=== PATIENT | male | born 1970 | race Caucasian/White ===

== ENCOUNTER 2025-06-07 07:21 | Inpatient (IN) | payer OTHER ==
[2025-06-07] VITALS (8 sets, daily range): BP systolic 170–191; BP diastolic 90–113; PULSE 72–84; RESP 12–18; TEMP 97.7–98.8; O2SAT 98–100
[~2025-06-07] VITALS: Ht 175.3 cm; Wt 116.1 kg
[2025-06-07] MEDS ORDERED: SODIUM CHLORIDE FLUSH 10 ML SYR IV PRN (07:45)
[2025-06-07 08:35] LABS: BASOPHILS % 0.4 % (0.0-1.0); EOSINOPHILS % 7.3 % (0.0-6.0); LYMPHOCYTES % 22.3 % (18.0-39.1); MONOCYTES % 7.3 % (4.4-11.3); NEUTROPHILS % 62.4 % (38.7-80.0); RED CELL DISTRIBUTION WIDTH 14.0 % (11.7-14.4)
[2025-06-07 09:17] LABS: EST GLOMERULAR FILTRATION RATE 51.0 ML/MIN (>=60)
[2025-06-07] MEDS ORDERED: IOPAMIDOL 370 MG/ML 100 ML INFUS..BTL INJ ONE (09:27)
[2025-06-07] MEDS ORDERED: SODIUM CHLORIDE FLUSH 10 ML SYR INJ PRN (11:15)
[2025-06-07] MEDS ORDERED: ONDANSETRON HCL INJ 2MG/ML 2ML 2 MG/ML VIAL IV PRN (11:15)
[2025-06-07] MEDS ORDERED: DIPHENHYDRAMINE HCL 25 MG CAP PO PRN (15:15)
[2025-06-07] MEDS: NIFEDIPINE CR 30 MG TAB PO SCH (15:15)
[2025-06-07] MEDS ORDERED: DOCUSATE SODIUM 100 MG CAP PO PRN (15:15)
[2025-06-07] MEDS ORDERED: SIMETHICONE 80 MG CHEW PO PRN (15:15)
[2025-06-07] MEDS ORDERED: POTASSIUM CHLORIDE 20 MEQ TAB CR PO PRN (15:15)
[2025-06-07] MEDS ORDERED: DEXTROSE 50% SYRINGE 50 ML IV PRN (15:15)
[2025-06-07] MEDS ORDERED: ALBUTEROL/IPRATROPIUM 3 ML NEB NEB PRN (15:15)
[2025-06-07] MEDS ORDERED: HYDROCODONE/APAP 5MG-325MG TAB PO PRN (15:15)
[2025-06-07] MEDS ORDERED: BENZONATATE 100 MG CAP PO PRN (15:15)
[2025-06-07] MEDS ORDERED: ACETAMINOPHEN 325 MG TAB PO PRN (15:15)
[2025-06-07] MEDS ORDERED: LIDOCAINE 4% PATCH TP PRN (15:15)
[2025-06-07] MEDS ORDERED: MELATONIN3 MG PO (15:24)
[2025-06-07] MEDS ORDERED: ATORVASTATIN CA20 MG PO (15:24)
[2025-06-07] MEDS ORDERED: FLOMAX0.4 MG PO (15:24)
[2025-06-07] MEDS ORDERED: ATENOLOL50 MG PO (15:29)
[2025-06-07] MEDS ORDERED: ONDANSETRON ODT8 MG PO (15:29)
[2025-06-07] MEDS ORDERED: ASPIRIN81 MG PO (15:29)
[2025-06-07] MEDS ORDERED: HYDROCODON-ACE1 EA11 PO (15:29)
[2025-06-07] MEDS ORDERED: ZOLPIDEM TARTRAT5 MG PO (15:29)
[2025-06-07] MEDS ORDERED: NIFEDIPINE10 MG PO (15:29)
[2025-06-07] MEDS ORDERED: TYLENOL325 MG PO (15:29)
[2025-06-07] MEDS ORDERED: HYDRALAZINE HCL25 MG PO (15:29)
[2025-06-07] MEDS ORDERED: CLONIDINE HCL0.3 MG PO (15:29)
[2025-06-07] MEDS ORDERED: MECLIZINE HCL12.5 MG PO (15:32)
[2025-06-07] MEDS ORDERED: CARVEDILOL25 MG PO (15:32)
[2025-06-07] MEDS ORDERED: NIFEDIPINE ER30 M1 PO (15:32)
[2025-06-07] MEDS: ENOXAPARIN SOD INJ 40 MG/0.4 ML SYR SC SCH (19:31)
[2025-06-08] VITALS (8 sets, daily range): BP systolic 158–192; BP diastolic 93–111; PULSE 65–87; RESP 16–20; TEMP 97.1–98.9; O2SAT 97–100
[2025-06-08 06:21] LABS: BASOPHILS % 0.8 % (0.0-1.0); EOSINOPHILS % 8.9 % (0.0-6.0); LYMPHOCYTES % 23.3 % (18.0-39.1); MONOCYTES % 7.2 % (4.4-11.3); NEUTROPHILS % 59.5 % (38.7-80.0); RED CELL DISTRIBUTION WIDTH 14.2 % (11.7-14.4)
[2025-06-08 06:45] LABS: EST GLOMERULAR FILTRATION RATE 50.0 ML/MIN (>=60)
[2025-06-08 07:15] LABS: CHOL/HDL RATIO 3.7 (3.9-4.7); LDL CHOLESTEROL 115.0 MG/DL (60-130)
[2025-06-08] MEDS: NIFEDIPINE CR 30 MG TAB PO SCH ×2 (08:27→21:00)
[2025-06-08] MEDS: PANTOPRAZOLE SOD 40 MG TABEC PO SCH (08:28)
[2025-06-08] MEDS: CARVEDILOL 12.5 MG TAB PO SCH (08:28)
[2025-06-08] MEDS ORDERED: CARVEDILOL 12.5 MG TAB PO SCH (09:00)
[2025-06-08] MEDS: HYDRALAZINE HCL 20 MG/ML VIAL IV PRN (16:13)
[2025-06-08] MEDS: ATORVASTATIN 40 MG TAB PO SCH (21:00)
[2025-06-08] MEDS: TAMSULOSIN HCL 0.4 MG CAP PO SCH (21:00)
[2025-06-08] MEDS: HYDRALAZINE HCL 25 MG TAB PO SCH (21:30)
[2025-06-08] MEDS: ZOLPIDEM TARTRATE 5 MG TAB PO PRN (21:34)
[2025-06-09] VITALS (8 sets, daily range): BP systolic 165–202; BP diastolic 89–110; PULSE 80–98; RESP 16–22; TEMP 98.4–98.7; O2SAT 97–99
[2025-06-09] MEDS: NIFEDIPINE CR 30 MG TAB PO SCH (08:50)
[2025-06-09] MEDS: ASPIRIN 81 MG CHEW TAB PO SCH (08:51)
[2025-06-09] MEDS: CARVEDILOL 12.5 MG TAB PO SCH (08:51)
[2025-06-09] MEDS ORDERED: REGADENOSON 0.4 MG/5 ML SYR IV ONE (12:07)
[2025-06-10] VITALS (11 sets, daily range): BP systolic 150–189; BP diastolic 86–106; PULSE 73–94; RESP 16–20; TEMP 97.9–98.7; O2SAT 96–100
[2025-06-11] VITALS (9 sets, daily range): BP systolic 151–161; BP diastolic 78–102; PULSE 73–92; RESP 17–20; TEMP 97.7–98.9; O2SAT 95–100
[2025-06-12] VITALS (7 sets, daily range): BP systolic 164–188; BP diastolic 97–108; PULSE 68–86; RESP 18–19; TEMP 98–99.1; O2SAT 95–100
[2025-06-13] VITALS (8 sets, daily range): BP systolic 171–193; BP diastolic 103–106; PULSE 75–87; RESP 18; TEMP 98.2–99.2; O2SAT 96–100
[2025-06-14] VITALS (9 sets, daily range): BP systolic 151–208; BP diastolic 104–134; PULSE 68–91; RESP 17–20; TEMP 97.5–98.7; O2SAT 97–100
[2025-06-14 09:28] LABS: BASOPHILS % 1.0 % (0.0-1.0); EOSINOPHILS % 8.7 % (0.0-6.0); LYMPHOCYTES % 23.5 % (18.0-39.1); MONOCYTES % 6.6 % (4.4-11.3); NEUTROPHILS % 59.9 % (38.7-80.0); RED CELL DISTRIBUTION WIDTH 13.9 % (11.7-14.4)
[2025-06-14 09:59] LABS: EST GLOMERULAR FILTRATION RATE 53.0 ML/MIN (>=60)
[2025-06-15] VITALS (8 sets, daily range): BP systolic 186–214; BP diastolic 99–115; PULSE 68–89; RESP 17–21; TEMP 97.8–98.6; O2SAT 96–99
[2025-06-15] MEDS: HYDRALAZINE HCL 100 MG TABLET PO SCH (22:26)
[2025-06-15] MEDS: CLONIDINE HCL 0.1 MG TAB PO SCH (22:27)
[2025-06-15] MEDS: MELATONIN 5 MG TABLET PO PRN (22:30)
[2025-06-16] VITALS (10 sets, daily range): BP systolic 171–225; BP diastolic 88–121; PULSE 68–90; RESP 16–20; TEMP 97.5–98.8; O2SAT 93–100
[2025-06-16 07:11] LABS: BASOPHILS % 0.8 % (0.0-1.0); EOSINOPHILS % 8.5 % (0.0-6.0); LYMPHOCYTES % 25.3 % (18.0-39.1); MONOCYTES % 7.1 % (4.4-11.3); NEUTROPHILS % 58.1 % (38.7-80.0); RED CELL DISTRIBUTION WIDTH 13.7 % (11.7-14.4)
[2025-06-16 07:40] LABS: EST GLOMERULAR FILTRATION RATE 58.0 ML/MIN (>=60)
[2025-06-16] MEDS: CLONIDINE HCL 0.1 MG TAB PO SCH (14:40)
[2025-06-17] VITALS (9 sets, daily range): BP systolic 138–198; BP diastolic 78–112; PULSE 61–88; RESP 16–19; TEMP 97.3–97.9; O2SAT 94–100
[2025-06-17] MEDS: TRAZODONE HCL 50 MG TAB PO PRN (00:18)
[2025-06-17] MEDS: SPIRONOLACTONE 25 MG TAB PO SCH (08:43)
[2025-06-17] MEDS: FUROSEMIDE 40 MG TAB PO SCH (08:45)
[2025-06-17] MEDS: CARVEDILOL 12.5 MG TAB PO ONE (12:46)
[2025-06-17] MEDS: LOSARTAN POTASSIUM 25 MG TAB PO SCH (12:52)
[2025-06-17] MEDS ORDERED: CARVEDILOL 12.5 MG TAB PO SCH (17:00)
[2025-06-17] MEDS: CARVEDILOL 12.5 MG TAB PO SCH (17:07)
[2025-06-18] VITALS (7 sets, daily range): BP systolic 122–161; BP diastolic 65–89; PULSE 59–87; RESP 18–20; TEMP 97–98.2; O2SAT 95–100
[2025-06-18] MEDS: CARVEDILOL 12.5 MG TAB PO SCH (10:22)
[2025-06-18] MEDS: NIFEDIPINE CR 30 MG TAB PO SCH (10:23)
[2025-06-18] MEDS: HYDRALAZINE HCL 100 MG TABLET PO SCH (12:53)
[2025-06-19] VITALS (10 sets, daily range): BP systolic 127–174; BP diastolic 57–98; PULSE 60–88; RESP 17–20; TEMP 97.5–98.2; O2SAT 96–100
[2025-06-20] VITALS (12 sets, daily range): BP systolic 163–210; BP diastolic 104–119; PULSE 79–100; RESP 16–21; TEMP 97.8–98.9; O2SAT 96–100
[2025-06-21] VITALS (10 sets, daily range): BP systolic 184–210; BP diastolic 99–118; PULSE 85–89; RESP 17–20; TEMP 97.8–98.9; O2SAT 97–100
[2025-06-21] MEDS: CLONIDINE HCL 0.2 MG/24 HR 1 EA PATCH TOP SCH (17:00)
[2025-06-22] VITALS (9 sets, daily range): BP systolic 190–209; BP diastolic 105–126; PULSE 79–88; RESP 18–20; TEMP 97.5–98.6; O2SAT 98–99
[2025-06-22] MEDS: CLONIDINE HCL 0.2 MG/24 HR 1 EA PATCH TOP SCH (11:43)
[2025-06-23] VITALS (9 sets, daily range): BP systolic 120–215; BP diastolic 96–116; PULSE 73–96; RESP 18–20; TEMP 97.4–98; O2SAT 95–100
[2025-06-24] VITALS (11 sets, daily range): BP systolic 109–193; BP diastolic 73–116; PULSE 72–89; RESP 16–20; TEMP 97.4–98; O2SAT 96–100
[2025-06-24 05:37] LABS: BASOPHILS % 0.7 % (0.0-1.0); EOSINOPHILS % 10.4 % (0.0-6.0); LYMPHOCYTES % 21.8 % (18.0-39.1); MONOCYTES % 8.5 % (4.4-11.3); NEUTROPHILS % 58.4 % (38.7-80.0); RED CELL DISTRIBUTION WIDTH 13.8 % (11.7-14.4)
[2025-06-24 06:03] LABS: EST GLOMERULAR FILTRATION RATE 58.0 ML/MIN (>=60)
[2025-06-25] VITALS (13 sets, daily range): BP systolic 145–220; BP diastolic 76–125; PULSE 71–110; RESP 16–19; TEMP 97.5–98; O2SAT 96–100
[2025-06-26] VITALS (10 sets, daily range): BP systolic 166–203; BP diastolic 101–139; PULSE 84–98; RESP 16–20; TEMP 97.5–98.1; O2SAT 97–100
[2025-06-27] VITALS (7 sets, daily range): BP systolic 149–189; BP diastolic 92–139; PULSE 76–94; RESP 15–20; TEMP 97.5–98.6; O2SAT 98–100
[2025-06-28] VITALS (9 sets, daily range): BP systolic 170–204; BP diastolic 105–120; PULSE 71–98; RESP 14–20; TEMP 98–98.2; O2SAT 95–100
[2025-06-29] VITALS (9 sets, daily range): BP systolic 178–208; BP diastolic 109–128; PULSE 78–88; RESP 16–19; TEMP 97.8–98.2; O2SAT 98–100
[2025-06-30] VITALS (10 sets, daily range): BP systolic 180–205; BP diastolic 110–128; PULSE 78–102; RESP 16–19; TEMP 98.1–98.6; O2SAT 95–100
== END 2025-06-30 20:38 | disposition left against medical advice (07) | DRG 305 ==
LOC: ER 07:35 → ERHOLD 11:05 → MED/SURG3 17:01 → OBSVTOIN 06-09 13:15
PROVIDERS: ADMIT Internal Medicine; ATTEND Internal Medicine
DX: I16.0 Hypertensive urgency (principal); I69.354 Hemiplegia and hemiparesis following cerebral infarction affecting left non-dominant side; N17.9 Acute kidney failure, unspecified; Z59.00 Homelessness unspecified; Z66 Do not resuscitate; I12.9 Hypertensive chronic kidney disease with stage 1 through stage 4 chronic kidney disease, or unspecified chronic kidney disease; N18.30 Chronic kidney disease, stage 3 unspecified; E78.5 Hyperlipidemia, unspecified; R07.89 Other chest pain; Z91.148 Patient's other noncompliance with medication regimen for other reason; Z79.82 Long term (current) use of aspirin; Z82.49 Family history of ischemic heart disease and other diseases of the circulatory system
CPT/HCPCS: 36415; 71045; 71260; 78452; 80048; 80053; 80061; 82550; 83036; 83735; 83880; 84443; 84484; 85025; 87106; 93005; 93017; 93970; 94760; 94799; 99252; 99285; A9502; G0378; J0360; J1650; J2470; Q9967